=== PATIENT | male | born 1950 | race Native Hawaiian/Other Pacific Islander ===

== ENCOUNTER 2019-07-07 09:48 | Outpatient (CLI) | payer OTHER, MEDICARE | END 2019-07-07 20:17 | disposition home or self-care (01) | LOC: RAD 09:48 | DX: M54.5 Low back pain (principal); M25.551 Pain in right hip ==

== ENCOUNTER 2020-07-19 10:26 | Outpatient (CLI) | payer OTHER, MEDICARE | END 2020-07-19 23:33 | disposition home or self-care (01) | LOC: RAD 10:26 | DX: M25.551 Pain in right hip (principal) ==

== ENCOUNTER 2022-04-15 12:50 | Emergency (ER) | payer OTHER, MEDICARE ==
[~2022-04-15] VITALS: Ht 182.9 cm; Wt 81.6 kg
[~2022-04-15 12:50] MED LIST: PRED5TAB3 PO
[2022-04-15 13:00] VITALS: TEMP 98.4
[2022-04-15] MEDS ORDERED: OXYC5TAB53 PO (13:14)
[2022-04-15] MEDS ORDERED: TIZA4TAB5 PO (13:15)
[2022-04-15] MEDS ORDERED: CRESTOR5 MG PO (13:15)
[2022-04-15] MEDS ORDERED: COZAAR100 MG PO (13:16)
[2022-04-15] MEDS ORDERED: LOPRESSOR100 MG PO (13:16)
[2022-04-15] MEDS ORDERED: STOOL SOFTNR100 MG PO (13:17)
[2022-04-15 13:18] LABS: PLATELET COUNT 157 K/uL (142-355)
[2022-04-15] MEDS ORDERED: METHOCARBAMOL PO (13:18)
[2022-04-15 13:36] LABS: PARTIAL THROMBOPLASTIN TIME 22.5 SECONDS (24.5-33.6)
[2022-04-15 13:45] LABS: POTASSIUM 3.5 mmol/L (3.6-5.2)
[2022-04-15 16:00] VITALS: BP 129/60
== END 2022-04-15 16:08 | disposition home or self-care (01) ==
LOC: ED 12:51
PROVIDERS: Emergency Medicine
DX: R41.0 Disorientation, unspecified (principal); R46.4 Slowness and poor responsiveness; Z98.890 Other specified postprocedural states; Z20.822 Contact with and (suspected) exposure to COVID-19; Z79.899 Other long term (current) drug therapy; Z51.81 Encounter for therapeutic drug level monitoring
CPT/HCPCS: 80053; 83605; 83880; 84484; 85027; 85610; 85730; 87040; 87635; 93005; 96365; 96366; 99284; J1956; U0003

== ENCOUNTER 2022-12-24 20:29 | Emergency (ER) | payer OTHER, MEDICARE ==
[~2022-12-24] VITALS: Ht 177.8 cm; Wt 88.5 kg
[~2022-12-24 20:29] MED LIST changes: +COZAAR100 MG PO; +CRESTOR5 MG PO; +LOPRESSOR100 MG PO; +METHOCARBAMOL PO; +OXYC5TAB53 PO; +STOOL SOFTNR100 MG PO; +TIZA4TAB5 PO
[2022-12-24 20:35] VITALS: TEMP 98.4
[2022-12-24 23:05] VITALS: BP 170/77
== END 2022-12-24 23:05 | disposition home or self-care (01) ==
LOC: ED 20:29
DX: S42.294A Other nondisplaced fracture of upper end of right humerus, initial encounter for closed fracture (principal); S42.214A Unspecified nondisplaced fracture of surgical neck of right humerus, initial encounter for closed fracture; W10.1XXA Fall (on)(from) sidewalk curb, initial encounter; Y92.89 Other specified places as the place of occurrence of the external cause
CPT/HCPCS: 96374; 96375; 99284; J1885; J2270; J2405